=== PATIENT | female | born 1970 | race Two or more races ===

== ENCOUNTER 2018-12-16 21:09 | Emergency (ER) | payer MEDICAID, OTHER ==
[~2018-12-16] VITALS: Ht 160 cm; Wt 77.1 kg
--- NOTE | 2018-12-16 21:32 | NUR ---
Pt [facility]IB[facility] for LLQ abd pain x 2 weeks. non-radi -N/V/D. Pt AxO4. Respirations even and unlabored. Pt put on the monitoring tech and pulse ox. Pending eval from [facility].
[2018-12-16 22:08] LABS: BASOPHILS # (AUTO) 0.1 /CMM (0.0-0.2); BASOPHILS % (AUTO) 1.4 % (0.0-2.0); EOSINOPHILS % (AUTO) 4.1 % (0.0-6.0); HEMATOCRIT 36 % (33-45); LYMPHOCYTES % (AUTO) 34.2 % (20.0-44.0); MEAN CORPUSCULAR HGB CONC 33 g/dl (31.0-36.0); MEAN CORPUSCULAR VOLUME 85 fL (82-100); MONOCYTES # (AUTO) 0.5 /CMM (0.1-1.30); MONOCYTES % (AUTO) 8.9 % (2.0-12.0); NEUTROPHILS % (AUTO) 51.4 % (43.0-81.0); PLATELET COUNT (AUTO) 202 /CMM (150-450); RED BLOOD CELL COUNT(AUTO) 4.26 MIL/uL (4.0-5.2); WHITE BLOOD COUNT (AUTO) 5.8 K/uL (4.3-11.0)
[2018-12-16 22:18] LABS: APPEARANCE,URINE Clear (CLEAR); BILIRUBIN,URINE Negative (NEGATIVE); BLOOD, URINE Trace-intact Ery/uL (NEGATIVE); COLOR,URINE Yellow (YELLOW); KETONES,URINE Negative (NEGATIVE); LEUKOCYTE ESTERASE ,URINE Negative (NEGATIVE); NITRITE, URINE Negative (NEGATIVE); PROTEIN,URINE Negative (NEGATIVE); UGLUCOSE Negative (NEGATIVE); UROBILINOGEN,URINE 0.2 EU/dL (0.2)
[2018-12-16] MEDS ORDERED: ONDANSETRON HCL/PF 4 MG/2 ML VIAL ONE (22:26)
[2018-12-16] MEDS ORDERED: MORPHINE SULFATE INJ 4 MG/ML DISP.SYRIN ONE (22:27)
[2018-12-16 22:28] LABS: CALCIUM, SERUM 8.3 mg/dL (8.5-10.1); CREATININE 1.2 mg/dL (0.6-1.3); POTASSIUM 3.6 mmol/L (3.5-5.1)
[2018-12-16] MEDS ORDERED: ONDANSETRON HCL/PF 4 MG/2 ML VIAL IVP ONE (22:30)
[2018-12-16] MEDS ORDERED: MORPHINE SULFATE INJ 2 MG/ML DISP.SYRIN IV ONE (22:30)
[2018-12-16 22:33] LABS: ALBUMIN 3.8 g/dL (3.4-5.0); BILIRUBIN,TOTAL 0.2 mg/dL (0.2-1.0); TOTAL PROTEIN, SERUM 7.3 g/dL (6.4-8.2)
[2018-12-16 22:37] LABS: BACTERIA,URINE None seen /HPF (None Seen); RBC,URINE 0-2 /HPF (0-2); SQUAMOUS EPITHELIAL CELL,UR None Seen /HPF (None Seen); WBC,URINE NONE SEEN /HPF (0-3)
--- NOTE | 2018-12-16 22:40 | NUR ---
Ultrasound at bedside.
[2018-12-16] MEDS ORDERED: IV NS 0.9% 250 ML IV ONE (23:58)
[2018-12-16] MEDS ORDERED: CT SWABBABLE VALVE TRANS SET 1 EA INFUS.SET MC ONE (23:58)
[2018-12-16] MEDS ORDERED: IOHEXOL-300 100 ML VIAL IV ONE (23:58)
--- NOTE | 2018-12-17 | NUR ---
Pt taken to CT.
--- NOTE | 2018-12-17 00:20 | NUR ---
Pt returned from CT, NAD noted. Will continue to monitor.
--- NOTE | 2018-12-17 01:20 | NUR ---
Patient discharged to home in stable condition. Written and verbal after care instructions given. Patient verbalizes understanding of instruction. IV removed. Catheter intact and site benign. Pressure and 4x4 applied to site. No bleeding noted.
[2018-12-17 01:21] VITALS: BP 111/65
== END 2018-12-17 01:22 | disposition home or self-care (01) ==
LOC: ER 21:12
DX: K40.90 Unilateral inguinal hernia, without obstruction or gangrene, not specified as recurrent (principal); R91.1 Solitary pulmonary nodule; Z98.51 Tubal ligation status
CPT/HCPCS: 36415; 74160; 76856; 80048; 80076; 81001; 83690; 84703; 85025; 87491; 87591; 96374; 96375; 99284; J2270; J2405; J7050; Q9967; 81000-TC

== ENCOUNTER 2021-10-23 22:32 | Emergency (ER) | payer OTHER ==
[~2021-10-23] VITALS: Ht 160 cm; Wt 72.6 kg
[~2021-10-23 22:32] MED LIST: SULF1TAB47 PO
[2021-10-23 23:25] VITALS: BP 132/81
[2021-10-24] MEDS ORDERED: IBUP-1957 PO (00:10)
[2021-10-24] MEDS ORDERED: CLIN150C16 PO (00:10)
[2021-10-24] MEDS ORDERED: TRAM-351 PO (00:10)
--- NOTE | 2021-10-24 00:15 | NUR ---
Patient discharged to home in stable condition. Written and verbal after care instructions given. Patient verbalizes understanding of instruction.
== END 2021-10-24 00:16 | disposition home or self-care (01) ==
LOC: ER 22:45
DX: M79.674 Pain in right toe(s) (principal); Z79.1 Long term (current) use of non-steroidal anti-inflammatories (NSAID); Z79.899 Other long term (current) drug therapy; Z98.51 Tubal ligation status
CPT/HCPCS: 73630-TC

== ENCOUNTER 2024-06-26 09:22 | Emergency (ER) | payer OTHER ==
[~2024-06-26] VITALS: Ht 165.1 cm; Wt 83.5 kg
[~2024-06-26 09:22] MED LIST changes: +CLIN150C16 PO; +IBUP-1957 PO; +TRAM-351 PO
[2024-06-26] MEDS ORDERED: KETOROLAC TROMETHAMINE INJ 30 MG/ML VIAL ONE (10:05)
[2024-06-26] MEDS ORDERED: CYCLOBENZAPRINE 10 MG TABLET ONE (10:05)
[2024-06-26] MEDS: CYCLOBENZAPRINE 10 MG TABLET PO ONE (10:11)
[2024-06-26] MEDS: KETOROLAC TROMETHAMINE INJ 60 MG/2 ML VIAL IM ONE (10:11)
[2024-06-26] MEDS ORDERED: CYCL10TA9 PO (10:21)
[2024-06-26 10:50] VITALS: BP 134/92; TEMP 98; O2SAT 97
== END 2024-06-26 10:51 | disposition home or self-care (01) ==
LOC: ER 09:29
DX: M54.2 Cervicalgia (principal); Z98.51 Tubal ligation status; Z79.1 Long term (current) use of non-steroidal anti-inflammatories (NSAID)
CPT/HCPCS: 99283; 96372; J1885